=== PATIENT | male | born 2000 | race Asian ===

== ENCOUNTER 2018-04-14 09:50 | Emergency (ER) | payer OTHER ==
[~2018-04-14] VITALS: Ht 170.2 cm; Wt 65.8 kg
== END 2018-04-14 10:44 | disposition home or self-care (01) ==
LOC: ED 09:50
DX: K40.90 Unilateral inguinal hernia, without obstruction or gangrene, not specified as recurrent (principal)

== ENCOUNTER 2020-07-10 13:05 | Emergency (ER) | payer OTHER ==
[~2020-07-10] VITALS: Ht 175.3 cm; Wt 64.4 kg
[2020-07-10 13:20] VITALS: BP 150/88; TEMP 98.7
== END 2020-07-10 16:00 | disposition home or self-care (01) ==
LOC: ED 13:05
DX: M79.604 Pain in right leg (principal)
CPT/HCPCS: 99281

== ENCOUNTER 2020-07-13 08:00 | Emergency (ER) | payer OTHER ==
[~2020-07-13] VITALS: Ht 175.3 cm; Wt 67.1 kg
[2020-07-13 09:50] VITALS: BP 123/68; TEMP 97.9
== END 2020-07-13 09:50 | disposition home or self-care (01) ==
LOC: ED 08:00
DX: S70.211A Abrasion, right hip, initial encounter (principal); S90.32XA Contusion of left foot, initial encounter; V00.131A Fall from skateboard, initial encounter; W22.8XXA Striking against or struck by other objects, initial encounter; Y92.89 Other specified places as the place of occurrence of the external cause
CPT/HCPCS: 90471; 90715; 99283